=== PATIENT | female | born 1970 | race Caucasian/White ===

== ENCOUNTER 2023-07-10 20:12 | Emergency (ER) | payer BC ==
[2023-07-10] MEDS ORDERED: Morphine 4 MG/ML VIAL ONE (21:48)
[2023-07-10] MEDS ORDERED: Ondansetron PF 4 MG/2 ML Vial ONE (21:48)
== END 2023-07-11 02:06 | disposition home or self-care (01) ==
LOC: CSHERS 20:12
DX: M25.552 Pain in left hip (principal)
CPT/HCPCS: 96374; 96375; J2270; J2405